=== PATIENT | male | born 1965 | race Caucasian/White ===

== ENCOUNTER 2017-10-30 03:07 | Emergency (ER) | payer MEDICARE, OTHER ==
[~2017-10-30] VITALS: Ht 182.9 cm; Wt 80.0 kg
[~2017-10-30 03:07] MED LIST: CITA20 PO; LATU40TA PO; XANA0.5T PO
[2017-10-30 03:16] VITALS: BP 153/101; PULSE 93; RESP 18; TEMP 96.8; O2SAT 97
[2017-10-30] MEDS ORDERED: TETANUS/DIPHTHERIA TOXOID ADULT 0.5 ML VIAL IM ONE (04:00)
[2017-10-30] MEDS ORDERED: ACETAMINOPHEN 325 MG TAB PO ONE (04:00)
[2017-10-30 04:10] VITALS: BP_SYST 153; PULSE 94; RESP 20; TEMP 98.4; O2SAT 99
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
[2017-10-30 04:19] VITALS: BP 138/74; PULSE 80; RESP 16; TEMP 98.2; O2SAT 97
== END 2017-10-30 04:26 ==
LOC: NEPI 03:07
DX: S00.93XA Contusion of unspecified part of head, initial encounter (principal); S80.212A Abrasion, left knee, initial encounter; W22.8XXA Striking against or struck by other objects, initial encounter; Y92.810 Car as the place of occurrence of the external cause; Z23 Encounter for immunization; Z72.0 Tobacco use
CPT/HCPCS: 90471; 90714